=== PATIENT | female | born 1950 | race Two or more races ===

== ENCOUNTER 2025-06-25 08:40 | Outpatient (AMB) | payer OTHER, SELFPAY ==
--- NOTE | 2025-06-25 08:45 | MHC.PC.OV ---
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, cholesterol, depression, gastro Intake Note: patient here for SCREEN REPAIRER CRUSHER visit Territory Service Representative Required: Yes Territory Service Representative Language: Certified Registered Locksmith Name: pt refused/ w-son in law Information Interpreted: non-clinical & clinical Is last menstrual period known: No Post menopausal: No Patient : No Allergies No Known Allergies Allergy (Verified 06/25/25 09:07) Medication List - Last Reconciled 06/25/25 by Bakari Ma CNP atorvastatin 80 mg PO BEDTIME hydrochlorothiazide 12.5 mg PO DAILY lansoprazole mg PO metoprolol succinate ER 25 mg PO DAILY pantoprazole 40 mg PO DAILY sertraline 150 mg PO DAILY Tobacco use date assessed: 06/25/25 Fall risk assessment: 2 + Falls in past year Last assessed Fall Risk: 06/25/25 Dental Screening Dental Screen Date: 06/25/25 Did you have a dental visit in the last 12 months?: Yes Did you have a dental problem in the last 6 months where you did not have access to dental care?: No Was dental information given to patient?: Patient has dentist HPI HPI Comments History of Present Illness Details 75-year-old female, accompanied by her son-in-law, presents to establish care. She admits to taking her medications as prescribed without adverse reactions. She reports controlled anxiety and depressive symptoms. She notes constant dull pain to her left shoulder. She takes Tylenol and lidocaine patch with some relief. PT was not helpful. She was followed by [facility]. Prior PCP? - Dr. 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 Does not vape. Does not drink. Denies recreational drug use - Has been making healthy dietary choices. Active but does not exercise. Difficulty falling and staying asleep, sleeps an average of 6 hours, interrupted, snores sometimes, has sleep study scheduled with [facility] - Last eye exam unknown. Has an appointment scheduled with [facility], [place] - Last dental visit was over 10 years ago; encouraged to schedule an appointment with his dentist for routine dental care - She notes that she receives the PNA vaccine in 2017 - She has never been vaccinated for tetanus; declines Tdap - She has never been vaccinated for shingles; declines vaccination - Has not been vaccinated for the flu this season; declines vaccination - Last pap smear test was more than 7 years ago: normal. Declines pap smear test - Last mammogram was in more than 5 years ago. Mammogram ordered - Last colonoscopy was several years ago: h/o benign polyps. She has endoscopy and colonoscopy scheduled with [facility]. - Last dexa scan was with [facility] a few months ago: Normal. Will request request record for review Specialists - Has an appointment [facility] later this month - Direct Care Supervisor and Edge Drummer at [facility] - Has an appointment with [facility] later this month for h/o stroke - Has an appointment scheduled with [facility] Medicine - Followed by a psychiatrist virtually Interpretation by the patient's son-in-law per patient's preference. [facility], [facility] Medical History (Updated 06/25/25 @ 11:46 by Bakari Ma CNP) Depression Anxiety Frequent headaches Imbalance Incontinence Acid reflux IBS (irritable bowel syndrome) Sciatica Arthritis H/O thyroid disease Heart palpitations Stroke (cerebrum) High cholesterol Sinusitis Surgical History (Updated 06/25/25 @ 09:49 by Kristal Boateng MA) History of shoulder surgery Family History (Updated 06/25/25 @ 09:56 by Kristal Boateng MA) Mother FH: mental illness Cardiovascular disease Thyroid disorder Brother FH: mental illness High cholesterol Father FH: mental illness High blood pressure Diabetes Son Cancer Social History (Updated 06/25/25 @ 08:57 by Kristal Boateng MA) Housing: Apartment Patient Tobacco Use Status: Never used Tobacco e-Cigarette/Vaping Use: Never Used Second Hand Smoke Exposure: No service: No Current occupational status: retired Current occupational exposures/hazards: No Cognitive needs: No Hearing needs: No Vision needs: Yes Questionnaire PHQ-9 Over the last 2 weeks, how often have you been bothered by any of the following problems? 1. Little interest or pleasure in doing things: several days 2. Feeling down, depressed, or hopeless: several days 3. Trouble falling or staying asleep, or sleeping too much: nearly every day 4. Feeling tired or having little energy: nearly every day 5. Poor appetite or overeating: several days 6. Feeling bad about yourself - or that you are a failure or have let yourself or your family down: not at all 7. Trouble concentrating on things, such as reading the newspaper or watching television: not at all 8. Moving or speaking so slowly that other people could have noticed. Or the opposite - being so fidgety or restless that you have been moving around a lot more than usual: several days 9. Thoughts that you would be better off or of hurting yourself in some way: not at all Total score: 10 Depression Screening Interpretation: Positive Depression Screening Follow-up: Existing condition and In treatment Depression Screening Done: Yes 09068 - PHQ-9 Billing: Yes Source: Developed by Drs. Nick Hahn, Suzi Pino, Gio Navarro and colleagues, with an educational faye from [employer]. Thrive Questionnaire Date Thrive assessed: 06/25/25 I am a: Patient What is your living situation today?: I have a steady place to live Within the past 12 months, did the food you bought not last and you didn't have the money to get more?: Never true Within the past 12 months, did you worry whether your food would run out before you got money to buy more?: Never true Do you have trouble paying for medicines?: No Do you have trouble getting transportation to medical appointments?: No Do you have trouble paying your heating and electricity bill?: No Do you have trouble taking care of your child, family member or friend?: No Do you have trouble with day-to-day activities such as bathing, preparing meals, shopping, managing finances, etc.?: Yes Are you currently unemployed and looking for a job?: No Are you interested in more education?: No Please select the resources that you would like help with: None Currently or been in a relationship where the following occur: No concerns reported THRIVE Score: 0 AUDIT C Alcohol Use Questionnaire (AUDIT-C) 1. How often do you have a drink containing alcohol?: Never 3. How often do you have six or more drinks on one occasion?: Never Total Score: 0 Score Reviewed/Action Taken: Yes JESSE-7 AMB Questionnaire JESSE-7 Date JESSE - 7 assessed: 06/25/25 Feeling nervous, anxious, or on edge: 1 = Several days Not being able to stop or control worryin = Several days Worrying too much about different things: 2 = More than half the days Trouble relaxin = More than half the days Being so restless that it is hard to sit still: 3 = Nearly every day Becoming easily annoyed or irritable: 0 = Not at all Feeling afraid as if something awful might happen: 1 = Several days Total JESSE-7 score (0-4 normal; 5-9 mild; 10-14 moderate; 15-21 severe): 10 Source: Developed by Drs. Nick Hahn, Suzi Pino, Gio Navarro and colleagues, with an educational faye from [employer]. JESSE-7 Assessment Billing JESSE-7 Assessment Tool: JESSE-7 Assessment 50360 Review of Systems Const Details: Denies chills, Denies fatigue, Denies fever(s), Denies headache(s) and Denies weakness HEENT Denies change in vision, Denies dizziness, Denies headache(s), Denies hearing loss, Denies nasal congestion, Denies sinus pain, Denies sinus pressure and Denies sore throat Card Denies chest pain, Denies lightheadedness, Denies dyspnea and Denies other (palpitations) Resp Denies cough, Denies dyspnea and Denies wheezing GI Denies abdominal pain, Denies melena, Denies hematochezia, Denies change in bowel habits, Denies dyspepsia and Denies nausea Denies hematuria and Denies dysuria Musc Reports left shoulder pain, Denies abnormal gait, Denies numbness and Denies tingling Skin/Breast Denies rash, Denies unusual bruising and Denies wounds Neuro Denies abnormal gait, Denies dizziness, Denies headache(s), Denies memory loss, Denies numbness, Denies Sensory deficit (Neuro), Denies tingling and Denies weakness Psych Denies anxiety, Denies depression and Denies memory loss Endo Denies cold intolerance, Denies fatigue, Denies heat intolerance, Denies polydipsia and Denies polyuria Erik/Lymph Denies easy bleeding and Denies easy bruising Aller/Immun Denies wheezing Physical exam (Primary Care) Vital Signs: Last Vital Signs Temp 97.9 F 06/25/25 08:58 Pulse 58 06/25/25 08:58 Resp 16 06/25/25 08:58 BP 133/61 06/25/25 08:58 Pulse Ox 98 06/25/25 08:58 Oxygen Delivery Method Room Air 06/25/25 08:58 BMI result Body Mass Index 27.2 Tobacco/Smoking Status: Tobacco use Status Tobacco use date assessed 06/25/25 06/25/25 08:57 Patient Tobacco Use Status Never used Tobacco 06/25/25 08:57 e-Cigarette/Vaping Use Never Used 06/25/25 08:57 PHQ-9: PHQ-9 Score PHQ-9: Total score 10 06/25/25 11:51 Depression Screening Interpretation: Positive Depression Screening Follow-up: Existing condition and In treatment Thrive Assessment: Date of Thrive Assessment Date Thrive assessed 06/25/25 06/25/25 09:57 Currently or been in a relationship where the following occur: No concerns reported Const Other: General: no acute distress, well developed, alert and awake Nutritional Appearance: well nourished Orientation/consciousness: patient oriented x3 HENMT Head: Yes normocephalic and Yes atraumatic Ears: hearing grossly normal bilaterally and TM's normal bilaterally General nose exam: Normal external nose present and Normal nares present Mouth: Normal oral and palatal mucosa present and moist mucous membranes Teeth and gingiva: dentition normal Throat: Yes oropharynx normal Eyes Pupils: Equal, round and reactive pupils present and Pupil accommodation reflex normal EOM: EOMs intact bilaterally Neck Neck: Yes normal visual inspection, Yes no lymphadenopathy and Yes trachea midline Thyroid: Thyroid normal Carotids: no bruits Lymphatic: no lymphadenopathy noted Chest Chest palpation & inspection: normal inspection of the chest Resp Effort & Inspection: normal respiratory effort Auscultation: clear to auscultation bilaterally Cardio Rate: regular rate Rhythm: regular rhythm Heart sounds: S1 normal heart sound present, S2 normal heart sound present, no gallops, no murmurs and no rubs Bruits: no abdominal aortic bruits and no carotid bruits GI Palpation (GI): No Abdominal aortic bruit present, Soft to palpation, nontender, No hepatosplenomegaly present and No Rebound tenderness present Auscultation: normal bowel sounds General: Yes no CVA tenderness Back/Spine/Pelvis Back: no CVA tenderness Cervical Spine: cervical ROM normal and No Cervical spine tenderness Thoracic/Lumbar Spine: thoraco-lumbar ROM normal, No pain with thoraco-lumbar ROM, No thoracic spinal tenderness and No lumbar spinal tenderness Skin General: warm and dry. Normal skin color. Normal skin turgor Lesions: no lesions Rashes: no rashes Trauma: no lacerations or abrasions Wounds: no wounds Nails: normal Neuro General: patient oriented x3, gait normal and CN's II-XI intact bilaterally Cranial nerves: Yes Equal, round and reactive pupils present Cognition (Neuro): normal cognition Gait exam (Neuro): Normal gait present Motor exam (neuro): 5/5 motor strength present throughout Sensory Exam: No Sensory deficit (Neuro) Deep tendon reflexes (DTR's): Right patellar reflex intensity grade: 2+ and Left patellar reflex intensity grade: 2+ Extrem General: Yes normal to inspection, No edema and No calf tenderness, Left shoulder with normal ROM, no overt injury or trauma Psych Appearance: grossly normal Affect: normal affect Attitude: cooperative Thought process: Normal thought process present Coding Level of Care Code New Pt Level 3 (24865) New Pt Prev Care >65yr (86238) Diagnoses Hypertension I10 Anxiety and depression F41.9; F32.A Sleep disturbance G47.9 Chronic left shoulder pain M25.512; G89.29 Laboratory tests ordered as part of a complete physical exam (CPE) Z00.00 Breast cancer screening by mammogram Z12.31 Additional Codes JESSE-7 Assessment Billing - JESSE-7 Assessment Tool: JESSE-7 Assessment 01097 ([id number]) PHQ-9 - 47242 - PHQ-9 Billing: Yes ([id number]) Assessment & Plan Assessment & Plan (1) Hypertension: Code(s): I10 - Essential (primary) hypertension Category: Medical Plan: Blood pressure is 133/61, slightly above goal of less than 130/80. Continue current treatment regimen. Low-sodium diet encouraged. Follow-up in 1 month for hypertension and labs reviewed. Return sooner with symptoms or concerns. Verbalized understanding and agreed with the plan. (2) Anxiety and depression: Code(s): F41.9 - Anxiety disorder, unspecified; F32.A - Depression, unspecified Category: Medical Plan: Reports controlled anxiety and depressive symptoms. PHQ-9 and JESSE-7 scores revealed moderate depression and anxiety. Continue current treatment regimen. Routine exercise encouraged. Follow-up with psychiatrist as planned. Verbalized understanding and agreed with the plan. (3) Sleep disturbance: Code(s): G47.9 - Sleep disorder, unspecified Category: Medical Plan: She reports difficulty falling and staying asleep. She sleeps an average of 6 hours, interrupted. She snores a times and has sleep study scheduled with [facility]. Instructed on sleep hygiene. May take melatonin as needed. Follow-up with [facility] sleep medicine as planned. Verbalized understanding and agreed with the plan. (4) Chronic left shoulder pain: Code(s): M25.512 - Pain in left shoulder; G89.29 - Other chronic pain Category: Medical Plan: She notes constant dull pain to her left shoulder. She takes Tylenol and lidocaine patch with some relief. PT was not helpful. She was followed by [facility] ortho. Normal ROM of the left shoulder. No overt injury or trauma. Continue current treatment regimen. Follow-up with Ortho as planned. Verbalized understanding and agreed with the plan. (5) Laboratory tests ordered as part of a complete physical exam (CPE): Code(s): Z00.00 - Encounter for general adult medical examination without abnormal findings Category: Medical Plan: Fasting labs ordered as part of a complete physical exam. Advised to fast for at least 10 hours before getting labs drawn. May drink water Verbalized understanding and agreed with treatment plan. (6) Breast cancer screening by mammogram: Code(s): Z12.31 - Encounter for screening mammogram for malignant neoplasm of breast Category: Medical Plan: Last mammogram was in more than 5 years ago. Mammogram ordered. Orders: Orders Microalbumin, Random (w Creat) Today Z00.00 - Encounter for general adult medical examination without abnormal findings TSH reflex Free T4 Today Z00.00 - Encounter for general adult medical examination without abnormal findings UA CC w/rflx Micro + Cult Today Z00.00 - Encounter for general adult medical examination without abnormal findings Vitamin D 25-OH Total Today Z00.00 - Encounter for general adult medical examination without abnormal findings MM screening mammo BI Today Z12.31 - Encounter for screening mammogram for malignant neoplasm of breast Complete Blood Count Auto Diff Today Z00.00 - Encounter for general adult medical examination without abnormal findings Comprehensive [place]. Panel Fast Today Z00.00 - Encounter for general adult medical examination without abnormal findings Lipid Panel Today Z00.00 - Encounter for general adult medical examination without abnormal findings
[2025-06-25 08:58] VITALS: BP 133/61; PULSE 58; RESP 16; TEMP 36.6; O2SAT 98; BMI 27.2
== END 2025-06-25 09:53 | disposition home or self-care (01) ==
LOC: HO.HMCFM 08:41
PROVIDERS: PCP Nurse Practitioner Family; Visit Provider Nurse Practitioner Family
DX: Z00.00 Encounter for general adult medical examination without abnormal findings (principal); I10 Essential (primary) hypertension; F41.9 Anxiety disorder, unspecified; F32.A Depression, unspecified; G47.9 Sleep disorder, unspecified; M25.512 Pain in left shoulder; G89.29 Other chronic pain; Z12.31 Encounter for screening mammogram for malignant neoplasm of breast

== ENCOUNTER → 2025-06-25 08:40 | Outpatient (BNVA) | payer OTHER, SELFPAY | PROVIDERS: PCP Nurse Practitioner Family; Visit Provider Nurse Practitioner Family | DX: Z00.00 Encounter for general adult medical examination without abnormal findings (principal); I10 Essential (primary) hypertension; F41.9 Anxiety disorder, unspecified; F32.A Depression, unspecified; M25.512 Pain in left shoulder; G89.29 Other chronic pain | CPT/HCPCS: 96127; 99202; 99387 ==

== ENCOUNTER 2025-07-02 09:44 | Outpatient (REF) | payer OTHER, SELFPAY ==
[2025-07-02 11:21] LABS: MANUAL DIFF FLAG NO
[2025-07-02 11:30] LABS: Hematocrit 34.3 % (37.0-47.0); Hemoglobin 11.8 g/dl (12.0-16.0); Imm Gran Abs Auto 0.01 X10*3/uL (0.00-0.03); Imm Gran Pct Auto 0.2 % (0.0-0.4); Lymphocytes Absolute Auto 2.1 X10*3/uL (1.2-4.9); Mean Corpuscular HGB Conc 34.4 g/dl (31.0-35.0); Mean Corpuscular Hemoglobin 31.6 pg (27.0-33.0); Mean Corpuscular Volume 91.7 fL (80.0-98.0); NRBC Abs Auto 0.000 X10*3/uL (0.0-0.012); NRBC Pct Auto 0.0 /100WBC (0.0-0.2); Platelet Count 229 X10*3/uL (160-400); Red Blood Count 3.74 X10*6/uL (4.20-5.50); White Blood Count 6.1 X10*3/uL (4.8-10.8)
[2025-07-02 11:34] LABS: Appearance Urine Clear; Glucose Urine UA Negative (Negative); PH 5.5 (5.0-9.0); Specific Gravity - Urine 1.020 (1.005-1.025); UMIC TRIGGER UACC YES
[2025-07-02 11:38] LABS: UACC Culture Trigger YES
--- OUTSIDE RECORDS SUMMARY | 2025-07-02 11:58 | XMS_ITS | Patient Health Record ---
Author Organization [facility] Address [address] [place] [address] Care Team Providers Care Electronics Installer Name Role Phone Wayne Ybarra Unavailable Unavailable Reason For Referral No Information Problems Problem Type SNOMED Code ICD Code Onset Dates Problem Status W/U Status Risk Notes Problem Information temporarily unavailable Radiculopat hy, lumbar region (M54.16) Active confirmed Problem Information temporarily unavailable Radiculopat hy, lumbar region (M54.16) Active confirmed Plan Of Treatment No Information Insurance Providers Payer Name Payer Address Payer Phone Subscriber Number Group Number Insured Name Patient Relationship to Insured Coverage Start Date Coverage End Date [facility] [address] [place] [address] [id number] Lauren Gotti Self - patient is the insured [employer] [place] [address] [place] [address] [id number] Lauren Gotti Self - patient is the insured
[2025-07-02 12:11] LABS: Microalbum/Creatinine Ratio Ur 9.5 ug/mg cr (<30)
[2025-07-02 12:18] LABS: Alanine Aminotransferase 21 U/L (0-31); Albumin Level 4.3 g/dL (3.5-5.0); Alkaline Phosphatase 108 U/L (39-117); Anion Gap 12 (12-20); Aspartate Amino Transferase 30 U/L (5-31); Blood Urea Nitrogen 9 mg/dL (9-16); Calcium 9.4 mg/dL (8.4-10.2); Carbon Dioxide 29 mmol/L (22-29); Chloride 105 mmol/L (96-108); Cholesterol 149 mg/dL (<200); Estimated Glomerular Filt Rate > 60; HDL Cholesterol 46 mg/dL (>40); Potassium 4.1 mmol/L (3.3-5.1); Sodium 142 mmol/L (135-145); Total Protein 7.0 g/dL (6.5-8.0); Triglycerides 135 mg/dL (<150)
== END 2025-07-02 09:45 | disposition home or self-care (01) ==
LOC: HO.WFDLDS 09:44
PROVIDERS: Visit Provider Nurse Practitioner Family
DX: Z00.00 Encounter for general adult medical examination without abnormal findings (principal); Z13.29 Encounter for screening for other suspected endocrine disorder; Z13.6 Encounter for screening for cardiovascular disorders; Z13.21 Encounter for screening for nutritional disorder
CPT/HCPCS: 36415; 80053; 80061; 81001; 82043; 82306; 82570; 84443; 85025; 87086

== ENCOUNTER 2025-08-07 09:37 | Outpatient (AMB) | payer OTHER, SELFPAY ==
--- NOTE | 2025-08-07 09:40 | MHC.PC.OV ---
Vital Signs 08/07/25 09:45 08/07/25 10:02 Height 5 ft 1 in Weight 143 lb 4 oz BMI 27.1 BP 135/65 130/70 Blood Pressure Location Rt brachial Rt brachial Position Sitting Sitting Respiration 16 Pulse 58 Pulse Source Pulse Oximeter Temp 97.7 F Temp Source Oral Pulse Oximetry (%) 97 Oxygen Delivery Method Room Air Intake Visit Reasons: 1 mos HTN, labs review, resched Intake Note: patient here for follow up on HTN and labs review Treating Machine Operator Required: Yes Treating Machine Operator Language: Public Health Sanitarian Technician Name: Brittani [id number] Information Interpreted: non-clinical & clinical Accompanied by: Grand Child Is last menstrual period known: No Post menopausal: No Patient : No Allergies No Known Allergies Allergy (Verified 08/07/25 09:54) Medication List - Last Reconciled 08/07/25 by Bakari Ma CNP atorvastatin 80 mg PO BEDTIME hydrochlorothiazide 12.5 mg PO DAILY lansoprazole mg PO metoprolol succinate ER 25 mg PO DAILY pantoprazole 40 mg PO DAILY sertraline 150 mg PO DAILY Tobacco use date assessed: 08/07/25 Fall risk assessment: No Falls in past year Last assessed Fall Risk: 08/07/25 Dental Screening Dental Screen Date: 08/07/25 Did you have a dental visit in the last 12 months?: Yes Did you have a dental problem in the last 6 months where you did not have access to dental care?: No Was dental information given to patient?: Patient has dentist HPI HPI Comments History of Present Illness Details 75-year-old Guamanian-speaking female, accompanied by her granddaughter, presents for hypertension and review of recent lab results. She admits to taking her medications as prescribed without adverse reactions. Reports intermittent right shoulder pain for the past 3months. She denies fall, injury, or trauma. She takes Tylenol as needed with temporary relief. She is followed by [facility]. She notes nonproductive cough daily at bedtime for several months. She denies sick contacts. No fever, chills, bodyaches, fatigue, or weakness. Irritation by a Guamanian-speaking design tech via electronic tablet. [facility] Medical History (Updated 08/07/25 @ 10:15 by Bakari Ma CNP) Depression Anxiety Frequent headaches Imbalance Incontinence Acid reflux IBS (irritable bowel syndrome) Sciatica Arthritis H/O thyroid disease Heart palpitations Stroke (cerebrum) High cholesterol Sinusitis Surgical History (Updated 06/25/25 @ 09:49 by KARRIE Young) History of shoulder surgery Family History (Updated 06/25/25 @ 09:56 by KARRIE Young) Mother FH: mental illness Cardiovascular disease Thyroid disorder Brother FH: mental illness High cholesterol Father FH: mental illness High blood pressure Diabetes Son Cancer Social History (Updated 06/25/25 @ 08:57 by KARRIE Young) Housing: Apartment Patient Tobacco Use Status: Never used Tobacco e-Cigarette/Vaping Use: Never Used Second Hand Smoke Exposure: No service: No Current occupational status: retired Current occupational exposures/hazards: No Cognitive needs: No Hearing needs: No Vision needs: Yes Questionnaire PHQ-9 Over the last 2 weeks, how often have you been bothered by any of the following problems? 1. Little interest or pleasure in doing things: nearly every day 2. Feeling down, depressed, or hopeless: several days 3. Trouble falling or staying asleep, or sleeping too much: several days 4. Feeling tired or having little energy: several days 5. Poor appetite or overeating: not at all 6. Feeling bad about yourself - or that you are a failure or have let yourself or your family down: several days 7. Trouble concentrating on things, such as reading the newspaper or watching television: not at all 8. Moving or speaking so slowly that other people could have noticed. Or the opposite - being so fidgety or restless that you have been moving around a lot more than usual: not at all 9. Thoughts that you would be better off or of hurting yourself in some way: not at all Total score: 7 Depression Screening Interpretation: Positive Depression Screening Follow-up: Existing condition and In treatment Depression Screening Done: Yes Source: Developed by Drs. Nick Hahn, Suzi Pino, Gio Navarro and colleagues, with an educational faye from [employer]. Thrive Questionnaire Date Thrive assessed: 06/22/25 I am a: Patient What is your living situation today?: I have a steady place to live Within the past 12 months, did the food you bought not last and you didn't have the money to get more?: Never true Within the past 12 months, did you worry whether your food would run out before you got money to buy more?: Never true Do you have trouble paying for medicines?: No Do you have trouble getting transportation to medical appointments?: No Do you have trouble paying your heating and electricity bill?: No Do you have trouble taking care of your child, family member or friend?: No Do you have trouble with day-to-day activities such as bathing, preparing meals, shopping, managing finances, etc.?: Yes Are you currently unemployed and looking for a job?: No Are you interested in more education?: No Please select the resources that you would like help with: None Currently or been in a relationship where the following occur: No concerns reported THRIVE Score: 0 JESSE-7 AMB Questionnaire JESSE-7 Date JESSE - 7 assessed: 06/25/25 Source: Developed by Drs. Nick Hahn, Suzi Pino, Gio Navarro and colleagues, with an educational faye from [employer]. Review of Systems Const Details: Const Denies chills, Denies fatigue, Denies fever(s), Denies headache(s) and Denies weakness ENT Denies dizziness and Denies headache(s) Card Denies chest pain, Denies lightheadedness, Denies dyspnea and Denies other (Palpitations) Resp Reports cough, Denies dyspnea, Denies wheezing and Denies other ( shortness of breath) GI Denies abdominal pain, Denies melena, Denies hematochezia, Denies change in bowel habits, Denies dyspepsia and Denies nausea Denies hematuria and Denies dysuria Musc Denies abnormal gait, Denies myalgias, Denies arthralgias, Denies numbness and Denies tingling Skin/Breast Denies rash, Denies unusual bruising and Denies wounds Neuro Denies abnormal gait, Denies dizziness, Denies headache(s), Denies memory loss, Denies numbness, Denies Sensory deficit (Neuro), Denies tingling and Denies weakness Psych Denies anxiety, Denies depression, Denies memory loss Endo Denies cold intolerance, Denies fatigue, Denies heat intolerance, Denies polydipsia and Denies polyuria Aller/Immun Denies wheezing Physical exam (Primary Care) Vital Signs: Last Vital Signs Temp 97.7 F 08/07/25 09:45 Pulse 58 08/07/25 09:45 Resp 16 08/07/25 09:45 BP 130/70 08/07/25 10:02 Pulse Ox 97 08/07/25 09:45 Oxygen Delivery Method Room Air 08/07/25 09:45 BMI result Body Mass Index 27.1 Tobacco/Smoking Status: Tobacco use Status Tobacco use date assessed 08/07/25 08/07/25 09:49 Patient Tobacco Use Status Never used Tobacco 08/07/25 09:49 e-Cigarette/Vaping Use Never Used 08/07/25 09:49 PHQ-9: PHQ-9 Score PHQ-9: Total score 7 08/07/25 10:02 Depression Screening Interpretation: Positive Depression Screening Follow-up: Existing condition and In treatment Thrive Assessment: Date of Thrive Assessment Date Thrive assessed 06/22/25 08/07/25 09:49 Currently or been in a relationship where the following occur: No concerns reported Const Other: General: no acute distress and well developed Nutritional Appearance: well nourished Orientation/consciousness: patient oriented x3 HENMT Head: Yes normocephalic and Yes atraumatic Eyes General: appearance normal, both eyes and all related structures Pupils: Equal, round and reactive pupils present EOM: EOMs intact bilaterally Resp Effort & Inspection: normal respiratory effort Auscultation: clear to auscultation bilaterally Cardio Rate: regular rate Rhythm: regular rhythm Heart sounds: S1 normal heart sound present, S2 normal heart sound present, no gallops, no murmurs and no rubs GI Palpation (GI): No Abdominal aortic bruit present, Soft to palpation, nontender, No hepatosplenomegaly present and No Rebound tenderness present Auscultation: normal bowel sounds General: Yes no CVA tenderness Back/Spine/Pelvis Back: no CVA tenderness Cervical Spine: cervical ROM normal and No Cervical spine tenderness Thoracic/Lumbar Spine: thoraco-lumbar ROM normal, No pain with thoraco-lumbar ROM, No thoracic spinal tenderness and No lumbar spinal tenderness Extrem General: Yes normal to inspection, No edema and No calf tenderness Skin General: warm and dry. Normal skin color. Normal skin turgor Neuro General: patient oriented x3, gait normal and no focal neuro deficit Cranial nerves: Yes Equal, round and reactive pupils present Cognition (Neuro): normal cognition Gait exam (Neuro): Normal gait present Sensory Exam: No Sensory deficit (Neuro) Psych Appearance: grossly normal Affect: normal affect Attitude: cooperative Thought process: Normal thought process present Coding Level of Care Code Est Pt Level 4 (63314) Diagnoses Hypertension I10 Normocytic anemia D64.9 Cough R05.9 Right shoulder pain M25.511 Assessment & Plan Assessment & Plan (1) Hypertension: Code(s): I10 - Essential (primary) hypertension Category: Medical Plan: Resting blood pressure 130/70, slightly above goal of less than 130/80. Continue current treatment regimen. Low-sodium diet encouraged. Follow-up in 3 months for hypertension, anxiety, depression. Return sooner with symptoms or concerns. Verbalized understanding and agreed with the plan. (2) Normocytic anemia: Code(s): D64.9 - Anemia, unspecified Category: Medical Plan: Recent labs reviewed with the patient. RBC and H&H were slightly low, 3.74 and 11.8/34.3 respectively. MCV is normal. Likely anemia of chronic disease. However, will check iron profile, vitamin B12, and folate levels. Will review results and make changes as needed. Follow-up in 3 months for hypertension, anxiety, and depression. Return sooner with symptoms or concerns. Verbalized understanding and agreed with the plan. (3) Cough: Code(s): R05.9 - Cough, unspecified Category: Medical Plan: She notes nonproductive cough daily at bedtime for several months. She denies sick contacts. No fever, chills, bodyaches, fatigue, or weakness. Likely allergies. No signs of bacterial or viral infection. Cetirizine 10 mg daily at bedtime ordered; advised to get prescribed. Follow-up with worsening or new symptoms. Verbalized understanding and agreed with the plan. (4) Right shoulder pain: Code(s): M25.511 - Pain in right shoulder Category: Medical Plan: Reports intermittent right shoulder pain for the past 3months. She denies fall, injury, or trauma. She takes Tylenol as needed with temporary relief. She is followed by [facility]. Normal ROM of the right shoulder. No overt injury or trauma. Take Tylenol ibuprofen as needed for pain or discomfort. Warm or cold compresses encouraged. Follow-up with ortho as planned. Verbalized understanding and agreed with the treatment plan. Orders: Orders IRON PROFILE Today D64.9 - Anemia, unspecified Vitamin B12 and Folate Today D64.9 - Anemia, unspecified Medications: New cetirizine 10 mg PO DAILY 30 tabs 3RF 30 days
[2025-08-07 09:45] VITALS: BP 135/65; PULSE 58; RESP 16; TEMP 36.5; O2SAT 97; BMI 27.1
[2025-08-07 10:02] VITALS: BP 130/70
--- OUTSIDE RECORDS SUMMARY | 2025-08-07 10:51 | XMS_ITS | Patient Health Record ---
Author Organization [facility] Address [address] [place] [address] Care Team Providers Care Sales Forecast Analyst Name Role Phone Wayne Ybarra Unavailable Unavailable [...] Insured Coverage Start Date Coverage End Date [employer] [address] [place] [address] [id number] Lauren Gotti Self - patient is the insured [employer] of [place] [address] [place] [address] [id number] Lauren Gotti Self - patient is the insured
--- OUTSIDE RECORDS SUMMARY | 2025-08-07 10:52 | XMS_ITS | Data Portability ---
Author Organization [place] - [facility], [facility] Address [address] [place] [address] Assessment Encounter Date Assessment Date Assessment LastModified by Organization Details LastModified Time 11/29/2024 11/29/2024 74-year-old female presents for evaluation of several issues. In regard to occasional otalgia otologic exam is unremarkable. She does have significant tenderness to TMJ particularly on the right side. Otalgia is likely referred from the jaw. TMJ precautions were discussed in detail. She feels as though her dentures fit well but she could visit her dentist to ensure there is no pressure spots which could be adjusted. In regard to tinnitus audiometric testing was obtained today. Results show high-frequency sensorineural hearing loss bilaterally which is symmetrical. She does not need amplification but this is certainly the cause for tinnitus. Masking techniques reviewed. In relation to swallowing difficulty will order a swallow study and follow-up for review when available. For rhinitis she may continue her Flonase as this has been beneficial in relieving symptoms. All questions were answered. [email or web address] Not available 11/29/2024 14:36:31 Plan of Treatment Reminders Order Date Submit Date Provider Last Modified By Organization Details Last Modified Time Details Appointments None record ed. Lab None record ed. Referral None record ed. Procedures None record ed. Surgeries None record ed. Imaging None record ed. Medication Orders None record ed. Patient TargetsNo targets recorded. Patient InstructionsNo instructions recorded. Reason for Referral None Reported. Problems Name Problem SNOMED Code Status Onset Date Resolution Date Notes Provider Name and Address Organization Details Recorded Time Dysphagia 64895645 Active 2024 APARNA VALLEJO PA-C [address], [place], [address], [place] - [facility] 5 14:36:36 Bilateral earache 154691741 Active 2024 APARNA VALLEJO PA-C [address] [address], [place], [address], [facility] - [facility] 5 14:36:46 Pain of temporomand ibular joint 36865977 Active 2024 APARNA VALLEJO PA-C [address] [address], [place], [address], [facility] - [facility] 5 14:36:50 Bilateral tinnitus 5259274375112 Active 2024 APARNA VALLEJO PA-C [address] [place] [address],[address] [address], [place], [address], [facility] - [facility] 5 14:36:55 Sensorineur al hearing loss of bilateral ears 875099446 Active 2024 APARNA VALLEJO PA-C [address] [address], [place], [address], [facility] - [facility] 5 14:36:58 Problem Notes None recorded. Medical Equipment None Reported. Medications Name Sig Start Date Stop Date Status Note LastModified by Organization Details LastModified Time cyclobenzapri ne 10 mg tablet TAKE ONE TABLET BY MOUTH THREE TIMES A DAY NEEDED active Not Available Not Available No t Available atorvastatin 40 mg tablet TAKE ONE TABLET BY MOUTH EVERY DAY active Not Available Not Available No t Available acetaminophen 325 mg tablet TAKE THREE TABLETS BY MOUTH EVERY 8 HOURS NEEDED FOR PAIN active Not Available Not Available No t Available azithromycin 250 mg tablet TAKE 2 TABLETS ON FIRST DAY , THEN 1 TABLET DAILY FOR 4 DAYS active Not Available Not Available No t Available prednisone 20 mg tablet TAKE 2 TABLETS BY MOUTH ONCE DAILY FOR 3 DAYS THEN 1 ONCE DAILY FOR 3 DAYS THEN 1/2 (ONE-HALF) ONCE DAILY FOR 4 DAYS active Not Available Not Available N ot Available sertraline 100 mg tablet TAKE 1.5 TABLETS BY MOUTH ONCE DAILY active Not Available Not Available No t Available aspirin 81 mg tablet,delaye d release TAKE ONE TABLET BY MOUTH EVERY DAY active Not Available Not Available No t Available acetaminophen 500 mg tablet TAKE TWO TABLETS BY MOUTH THREE TIMES A DAY NEEDED active Not Available Not Available No t Available temazepam 30 mg capsule TAKE 1 CAPSULE BY MOUTH EVERY NIGHT AT BEDTIME active Not Available Not Available No t Available levothyroxine 50 mcg tablet TAKE ONE TABLET BY MOUTH EVERY DAY active Not Available Not Available No t Available cephalexin 500 mg capsule TAKE ONE CAPSULE BY MOUTH EVERY 12 HOURS FOR 5 DAYS active Not Available Not Available No t Available pantoprazole 40 mg tablet,delaye d release TAKE ONE TABLET BY MOUTH EVERY DAY active Not Available Not Available No t Available erythromycin 5 mg/gram (0.5 %) eye ointment APPLY A SMALL AMOUNT ON EYELID FOUR TIMES A DAY X 1 WEEK THEN STOP active Not Available Not Available No t Available lansoprazole 30 mg capsule,delay ed release TAKE ONE CAPSULE BY MOUTH TWICE A DAY FOR 2 WEEKS. IF SYMPTOMS ARE BETTER THEN REDUCE TO TAKE ONE CAPSULE BY MOUTH EVERY DAY active Not Available Not Available No t Available omeprazole 20 mg capsule,delay ed release TAKE ONE CAPSULE BY MOUTH EVERY DAY active Not Available Not Available No t Available gabapentin 100 mg capsule TAKE ONE CAPSULE BY MOUTH TWICE A DAY active Not Available Not Available No t Available metoprolol succinate ER 25 mg tablet,extend ed release 24 hr TAKE ONE TABLET BY MOUTH EVERY DAY active Not Available Not Available No t Available moxifloxacin 0.5 % eye drops INSTILL 1 DROP INTO OPERATIVE EYE 3 TIMES DAILY STARTING 1 DAY PRE-OP. CONTINUE FOR 7 DAYS AFTER SURGERY active Not Available Not Available No t Available hydrochloroth iazide 12.5 mg tablet TAKE ONE TABLET BY MOUTH EVERY DAY active Not Available Not Available No t Available Prolensa 0.07 % eye drops INSTILL 1 DROP IN THE OPERATIVE EYE EVERY MORNING FOR 21 DAYS. START 1 DAY PRE-OP active Not Available Not Available N ot Available Vitals Date Recorded Body height Body mass index (BMI) Body weight Provider Name and Address Organization Details Last Updated DateTime 11/29/2024 157.48 cm 26 kg/m2 09911.12 g Brenda Hoff [place] - [facility] 11/29/2024 13:30:42 Social History None recorded. Functional Status None recorded. Mental Status None recorded. Family History Nothing Reported. Medical History No medical history recorded. Gynecological HistoryNo gynecological history recorded. Obstetrics History GPAL:G 0 P 0 0 0 0 Past Encounters Encounter ID Performer Location Encounter Start Date Encounter Closed Date Diagnosis/Indication Diagnosis SNOMED-CT Code Diagnosis ICD10 Code Diagnosis IMO Codes Diagnosis Note [id number] APARNA VALLEJO PA-C [facility] [address] [address] 11/29/2024 13:08:12 11/29/2024 14:21:01 Dysphagia 58682524 R13.10 Bilateral earache 035238 003 H92.03 Pain of temporomandibular joint 70393533 M26.629 Bilateral tinnitus 40957 45732 102 H93.13 Sensorineu ral hearing loss of bilateral ears 726409745 H90.3 Health Concerns Section Related Observation LastModified by Organization Detai ls LastModified Time None Recorded Concern Status LastModified by Organization Details LastModified Time None Recorded Advance Directives Directive None Recorded Payers Insurance Date Sequence Insurance Name Policy Number Policy Barnes Covered Member ID Barnes Member ID Guarantor Name 11/23/2024 1 [place] [employer] Lauren Dominguez [id number] Lauren Dominguez 11/23/2024 2 [place] [id number] Laurenjill Dominguez [id number] Lauren Mariees Angelica 03/08/2025 1 [facility] - DOS ON OR AFTER 2023 - DUAL ELIGIBLE - [place]/AD VANTAGE - HMO) Lauren Dominguez [id number] Lauren Dominguez 11/29/2024 1 [place] [employer] Lauren Dominguez [id number] Lauren Mariees Alvelo 11/23/2024 1 [facility] ([facility]) Lauren Dominguez [id number] Lauren Dominguez 11/23/2024 1 [facility] - DOS ON OR AFTER 2023 - [place] VANTAGE - PPO) Lauren Dominguez [id number] Lauren Dominguez 11/23/2024 1 [place] [employer] Lauren R Alicja Alvelo [id number] Lauren Dominguez 11/23/2024 1 [facility] - DOS ON OR AFTER 2023 - ASSISTED OPTIONS AND ONE CARE (MEDICARE REPLACEMENT/AD VANTAGE - PPO) Lauren Dominguez [id number] Lauren Dominguez Notes Date Note Type Note Provider Name and Address Organization Details Recorded Time 11/29/2024 text/html ROS as noted in the HPI 74-year-old female presents for evaluation of several issues. Primarily she has intermittent otalgia bilaterally. Reports it feels as though it is behind and in front of her ear. She does not have history of bruxism but does have significant arthritis. Has dentures but feels as though they fit well. History of smoking but quit 20 years ago. She also has bilateral tinnitus but does not notice hearing loss. She has chronic rhinitis for which she uses Flonase with good effect. Occasionally has swallowing difficulty without pain. APARNA VALLEJO PA-C [address] [place] [address], [phone], [facility] - [facility] 11/29/2024 14:37:52 OBGyn Episode No OBEpisode recorded.
== END 2025-08-07 10:19 | disposition home or self-care (01) ==
LOC: HO.HMCFM 09:38
PROVIDERS: PCP Nurse Practitioner Family; Visit Provider Nurse Practitioner Family
DX: I10 Essential (primary) hypertension (principal); D64.9 Anemia, unspecified; R05.9 Cough, unspecified; M25.511 Pain in right shoulder

== ENCOUNTER 2025-08-07 09:37 | Outpatient (REF) | payer OTHER, SELFPAY ==
[2025-08-07 12:46] LABS: Iron 83 mcg/dL (30-160); Percent Iron Saturation 30 % (15-50); Total Iron Binding Capacity 276 mcg/dL (228-428); Unsaturated Iron Binding 193 ug/dL
[2025-08-07 13:56] LABS: Folate 12.0 ng/mL (> or = 4.0); Vitamin B12 201 pg/mL (200-900)
== END 2025-08-07 09:38 | disposition home or self-care (01) ==
LOC: HO.WFDLDS 09:37
PROVIDERS: PCP Nurse Practitioner Family; Visit Provider Nurse Practitioner Family
DX: Z00.00 Encounter for general adult medical examination without abnormal findings (principal); I10 Essential (primary) hypertension; D64.9 Anemia, unspecified; R05.9 Cough, unspecified; M25.511 Pain in right shoulder; Z79.899 Other long term (current) drug therapy
CPT/HCPCS: 36415; 82607; 82746; 83540; 99212

== ENCOUNTER 2025-09-11 10:28 | Outpatient (AMB) | payer OTHER, SELFPAY ==
--- NOTE | 2025-09-11 10:35 | MHC.PC.OV ---
Vital Signs 09/11/25 10:40 Height 5 ft 1 in Weight 141 lb 2 oz BMI 26.7 BP 134/65 Blood Pressure Location Lt brachial Position Sitting Respiration 16 Pulse 61 Pulse Source Pulse Oximeter Temp 98.0 F Temp Source Oral Pulse Oximetry (%) 99 Oxygen Delivery Method Room Air Intake Visit Reasons: pain to right breast Intake Note: patient here c/o right breast pain Service Attendant Cafeteria Required: Yes Service Attendant Cafeteria Language: Stenotype Machine Operator Name: maría Bush Is last menstrual period known: No Post menopausal: No Patient : No Allergies No Known Allergies Allergy (Verified 09/11/25 10:48) Medication List - Last Reconciled 09/11/25 by Bakari Ma CNP atorvastatin 80 mg PO BEDTIME cetirizine 10 mg PO DAILY 30 days hydrochlorothiazide 12.5 mg PO DAILY lansoprazole mg PO metoprolol succinate ER 25 mg PO DAILY 30 days pantoprazole 40 mg PO DAILY sertraline 150 mg PO DAILY Tobacco use date assessed: 09/11/25 Fall risk assessment: No Falls in past year Last assessed Fall Risk: 09/11/25 Dental Screening Dental Screen Date: 09/11/25 Did you have a dental visit in the last 12 months?: Yes Did you have a dental problem in the last 6 months where you did not have access to dental care?: No Was dental information given to patient?: Patient has dentist HPI HPI Comments History of Present Illness Details 75-year-old Monegasque-speaking female presents with complaints of pain to her right lower lateral breast about a week ago, after she touched the area with her hand. Subsequently, she experienced persistent discomfort for 3-4 days which completely resolved. She denies pain at this time. Last mammogram was 5 years ago. Interpretation by a professional freelance interpreter/translator via voice call. [facility] Medical History (Updated 09/11/25 @ 11:05 by Bakari Ma CNP) Depression Anxiety Frequent headaches Imbalance Incontinence Acid reflux IBS (irritable bowel syndrome) Sciatica Arthritis H/O thyroid disease Heart palpitations Stroke (cerebrum) High cholesterol Sinusitis Surgical History (Updated 06/25/25 @ 09:49 by KARRIE Young) History of shoulder surgery Family History (Updated 06/25/25 @ 09:56 by KARRIE Young) Mother FH: mental illness Cardiovascular disease Thyroid disorder Brother FH: mental illness High cholesterol Father FH: mental illness High blood pressure Diabetes Son Cancer Social History (Updated 06/25/25 @ 08:57 by KARRIE Young) Housing: Apartment Patient Tobacco Use Status: Never used Tobacco e-Cigarette/Vaping Use: Never Used Second Hand Smoke Exposure: No Patient : No service: No Current occupational status: retired Current occupational exposures/hazards: No Cognitive needs: No Hearing needs: No Vision needs: Yes Questionnaire Thrive Questionnaire Date Thrive assessed: 06/22/25 I am a: Patient What is your living situation today?: I have a steady place to live Within the past 12 months, did the food you bought not last and you didn't have the money to get more?: Never true Within the past 12 months, did you worry whether your food would run out before you got money to buy more?: Never true Do you have trouble paying for medicines?: No Do you have trouble getting transportation to medical appointments?: No Do you have trouble paying your heating and electricity bill?: No Do you have trouble taking care of your child, family member or friend?: No Do you have trouble with day-to-day activities such as bathing, preparing meals, shopping, managing finances, etc.?: Yes Are you currently unemployed and looking for a job?: No Are you interested in more education?: No Please select the resources that you would like help with: None Currently or been in a relationship where the following occur: No concerns reported THRIVE Score: 0 JESSE-7 AMB Questionnaire JESSE-7 Date JESSE - 7 assessed: 06/25/25 Source: Developed by Drs. Nick Hahn, Suzi Pino, Gio Navarro and colleagues, with an educational faye from [employer]. Review of Systems Const Details: Const Denies chills, Denies fatigue, Denies fever(s), Denies headache(s) and Denies weakness ENT Denies dizziness and Denies headache(s) Card Denies chest pain, Denies lightheadedness, Denies dyspnea and Denies other (Palpitations) Resp Denies cough, Denies dyspnea, Denies wheezing and Denies other ( shortness of breath) GI Denies abdominal pain, Denies melena, Denies hematochezia, Denies change in bowel habits, Denies dyspepsia and Denies nausea Denies hematuria and Denies dysuria Musc Denies abnormal gait, Denies myalgias, Denies arthralgias, Denies numbness and Denies tingling Skin/Breast Denies rash, Denies unusual bruising and Denies wounds Neuro Denies abnormal gait, Denies dizziness, Denies headache(s), Denies memory loss, Denies numbness, Denies Sensory deficit (Neuro), Denies tingling and Denies weakness Psych Denies anxiety, Denies depression, Denies memory loss Endo Denies cold intolerance, Denies fatigue, Denies heat intolerance, Denies polydipsia and Denies polyuria Aller/Immun Denies wheezing Physical exam (Primary Care) Vital Signs: Last Vital Signs Temp 98.0 F 09/11/25 10:40 Pulse 61 09/11/25 10:40 Resp 16 09/11/25 10:40 BP 134/65 09/11/25 10:40 Pulse Ox 99 09/11/25 10:40 Oxygen Delivery Method Room Air 09/11/25 10:40 BMI result Body Mass Index 26.7 Tobacco/Smoking Status: Tobacco use Status Tobacco use date assessed 09/11/25 09/11/25 10:41 Patient Tobacco Use Status Never used Tobacco 09/11/25 10:37 e-Cigarette/Vaping Use Never Used 09/11/25 10:37 Thrive Assessment: Date of Thrive Assessment Date Thrive assessed 06/22/25 09/11/25 10:37 Currently or been in a relationship where the following occur: No concerns reported Const Other: General: no acute distress and well developed Nutritional Appearance: well nourished Orientation/consciousness: patient oriented x3 [facility] Head: Yes normocephalic and Yes atraumatic Eyes General: appearance normal, both eyes and all related structures Pupils: Equal, round and reactive pupils present EOM: EOMs intact bilaterally Resp Effort & Inspection: normal respiratory effort Auscultation: clear to auscultation bilaterally Cardio Rate: regular rate Rhythm: regular rhythm Heart sounds: S1 normal heart sound present, S2 normal heart sound present, no gallops, no murmurs and no rubs GI Palpation (GI): No Abdominal aortic bruit present, Soft to palpation, nontender, No hepatosplenomegaly present and No Rebound tenderness present Auscultation: normal bowel sounds General: Yes no CVA tenderness Back/Spine/Pelvis Back: no CVA tenderness Cervical Spine: cervical ROM normal and No Cervical spine tenderness Thoracic/Lumbar Spine: thoraco-lumbar ROM normal, No pain with thoraco-lumbar ROM, No thoracic spinal tenderness and No lumbar spinal tenderness Extrem General: Yes normal to inspection, No edema and No calf tenderness Skin General: warm and dry. Normal skin color. Normal skin turgor Neuro General: patient oriented x3, gait normal and no focal neuro deficit Cranial nerves: Yes Equal, round and reactive pupils present Cognition (Neuro): normal cognition Gait exam (Neuro): Normal gait present Sensory Exam: No Sensory deficit (Neuro) Psych Appearance: grossly normal Affect: normal affect Attitude: cooperative Thought process: Normal thought process present Coding Level of Care Code Est Pt Level 3 (53768) Diagnoses Breast pain, right N64.4 Assessment & Plan Assessment & Plan (1) Breast pain, right: Code(s): N64.4 - Mastodynia Category: Medical Plan: Patient reports pain to her right lower lateral breast about a week ago, after she touched the area with her hand. Subsequently, she experienced persistent discomfort for 3-4 days which completely resolved. She denies pain at this time. Declines breast exam at this time. Last mammogram was 5 years ago. Mammogram was ordered in June for patients to bring to a facility of her choice, but she did not. Mammogram ordered for [facility] Radiology today. Follow-up as planned. Return sooner with symptoms or concerns. Verbalized understanding and agreed with the plan. Orders: Orders MM screening mammo BI Today Z12.31 - Encounter for screening mammogram for malignant neoplasm of breast
[2025-09-11 10:40] VITALS: BP 134/65; PULSE 61; RESP 16; TEMP 36.7; O2SAT 99; BMI 26.7
--- OUTSIDE RECORDS SUMMARY | 2025-09-11 13:06 | XMS_ITS | Data Portability ---
Author Organization [place] - [facility], Allergy Address [address] [place] [address] Assessment Encounter Date Assessment Date Assessment LastModified [...] and Address Organization Details Recorded Time Dysphagia 75127915 Active 2024 APARNA VALLEJO PA-C [address], [place], [address], [place] [facility] [place] 5 14:36:36 Bilateral earache 587266083 Active 2024 APARNA VALLEJO PA-C [address] [address], [place], [address], [facility] - [facility] [place] 5 14:36:46 Pain of temporomand ibular joint 92000681 Active 2024 APARNA VALLEJO PA-C [address] [address], [place], [address], [facility] - [facility] [place] 5 14:36:50 Bilateral tinnitus 9816822351417 Active 2024 APARNA VALLEJO PA-C [address] [place] [address],[address] [address], [place], [address], [facility] - [facility] 5 14:36:55 Sensorineur al hearing loss of bilateral ears 548360037 Active 2024 APARNA VALLEJO PA-C [address] [address], [place], [address], [facility] - [facility] [place] 5 14:36:58 Problem Notes None recorded. Medical [...] Updated DateTime 11/29/2024 157.48 cm 26 kg/m2 96887.12 g Brenda Hoff [place] - [facility] 11/29/2024 13:30:42 Social History None recorded. Functional Status None recorded. Mental Status None recorded. Family History Nothing Reported. Medical History No medical history recorded. Gynecological HistoryNo gynecological history recorded. Obstetrics History GPAL:G 0 P 0 0 0 0 Past Encounters Encounter ID Performer Location Encounter Start Date Encounter Closed Date Diagnosis/Indication Diagnosis SNOMED-CT Code Diagnosis ICD10 Code Diagnosis IMO Codes Diagnosis Note [id number] APARNA VALLEJO PA-C [facility] [address] [address] 11/29/2024 13:08:12 11/29/2024 14:21:01 Dysphagia 37965231 R13.10 Bilateral earache 058909 003 H92.03 Pain of temporomandibular joint 64130478 M26.629 Bilateral tinnitus 36220 94165 102 H93.13 Sensorineu ral hearing loss of bilateral ears 980849014 H90.3 Health Concerns Section Related Observation LastModified by Organization Detai ls LastModified Time None Recorded Concern Status LastModified by Organization Details LastModified Time None Recorded Advance Directives Directive None Recorded Payers Insurance Date Sequence Insurance Name Policy Number Policy Barnes Covered Member ID Barnes Member ID Guarantor Name 11/23/2024 1 [place] [employer] Lauren Dominguez [id number] Lauren Dominguez 11/23/2024 2 [place] [facility] Laurenjill Dominguez [id number] Lauren Mariees Angelica 03/08/2025 1 [facility] - DOS ON OR AFTER 2023 - DUAL ELIGIBLE [place]/AD VANTAGE - HMO) Lauren Dominguez [id number] Lauren Dominguez 11/29/2024 1 [place] [employer] Lauren Dominguez [id number] Lauren Mariees Alvelo 11/23/2024 1 [facility] - [facility] HEALTH PLAN ([facility] HMO) Lauren Dominguez [id number] Lauren Dominguez 11/23/2024 1 [facility] CARE ALLI[facility] - DOS ON OR AFTER 2023 - [place]/AD VANTAGE - PPO) Lauren Dominguez [id number] Lauren Dominguez 11/23/2024 1 [place] [employer] Lauren R Alicja Alvelo [id number] Lauren Dominguez 11/23/2024 1 [facility] - DOS ON OR AFTER 2023 - SKILLED NURSING OPTIONS AND ONE CARE (MEDICARE REPLACEMENT/AD VANTAGE - PPO) Lauren Dominguez [id number] Lauren Dominguez Notes Date Note Type Note [...] swallowing difficulty without pain. APARNA VALLEJO PA-C [address] [place] [address], [phone], [facility] - [facility] 11/29/2024 14:37:52 OBGyn Episode No OBEpisode recorded.
== END 2025-09-11 12:22 | disposition home or self-care (01) ==
LOC: HO.HMCFM 10:29
PROVIDERS: PCP Nurse Practitioner Family; Visit Provider Nurse Practitioner Family
DX: N64.4 Mastodynia (principal)

== ENCOUNTER → 2025-09-11 10:28 | Outpatient (BNVA) | payer OTHER, SELFPAY | PROVIDERS: PCP Nurse Practitioner Family; Visit Provider Nurse Practitioner Family | DX: N64.4 Mastodynia (principal) | CPT/HCPCS: 99212 ==

== ENCOUNTER 2025-09-25 11:00 | Outpatient (AMB) | payer OTHER, SELFPAY ==
--- NOTE | 2025-09-25 11:13 | A.OFFPC_ITS ---
Vital Signs 09/25/25 11:19 Height 5 ft 1 in Weight 143 lb 2 oz BMI 27.0 BP 154/67 H Blood Pressure Location Lt brachial Position Sitting Respiration 16 Pulse 62 Pulse Source Pulse Oximeter Temp 97.7 F Temp Source Oral Pulse Oximetry (%) 97 Oxygen Delivery Method Room Air Intake Visit Reasons: pain in right breast mammogram Intake Note: patient here for pain in right breast/ Mammogram Storage Garage Manager Required: Yes Storage Garage Manager Language: Financial Institution Manager Name: shadi [id number] Information Interpreted: non-clinical & clinical Is last menstrual period known: No Post menopausal: No Patient : No Allergies No Known Allergies Allergy (Verified 09/25/25 11:29) Medication List - Last Reconciled 09/25/25 by Bakari Ma CNP atorvastatin 80 mg PO BEDTIME cetirizine 10 mg PO DAILY 30 days hydrochlorothiazide 12.5 mg PO DAILY lansoprazole mg PO metoprolol succinate ER 25 mg PO DAILY 30 days pantoprazole 40 mg PO DAILY rabeprazole mg PO sertraline 150 mg PO DAILY Tobacco use date assessed: 09/25/25 Fall risk assessment: No Falls in past year Last assessed Fall Risk: 09/25/25 Dental Screening Dental Screen Date: 09/25/25 Did you have a dental visit in the last 12 months?: No Did you have a dental problem in the last 6 months where you did not have access to dental care?: No Was dental information given to patient?: No HPI HPI Comments History of Present Illness Details 75-year-old Setswana-speaking female pres ents with requests for a mammogram referral. She notes that she was informed by her son-in-law that a diagnostic mammogram is required. Patient denies breast pain or any acute symptoms at this time. I spoke with the son-in-law over the phone who states that radiology department at [facility] requested the patient's PCP orders a diagnostic mammogram as patient has symptoms. Patient's son-in-law informed that the patient did not have symptoms at her last or current visit and therefore does not required a diagnostic mammogram. Interpretation by a professional director speech and hearing via video call. [facility] Medical History (Updated 09/11/25 @ 11:05 by Bakari Ma CNP) Depression Anxiety Frequent headaches Imbalance Incontinence Acid reflux IBS (irritable bowel syndrome) Sciatica Arthritis H/O thyroid disease Heart palpitations Stroke (cerebrum) High cholesterol Sinusitis Surgical History (Updated 06/25/25 @ 09:49 by KARRIE Young) History of shoulder surgery Family History (Updated 06/25/25 @ 09:56 by KARRIE Young) Mother FH: mental illness Cardiovascular disease Thyroid disorder Brother FH: mental illness High cholesterol Father FH: mental illness High blood pressure Diabetes Son Cancer Social History (Updated 06/25/25 @ 08:57 by KARRIE Young) Housing: Apartment Patient Tobacco Use Status: Never used Tobacco e-Cigarette/Vaping Use: Never Used Second Hand Smoke Exposure: No Patient : No service: No Current occupational status: retired Current occupational exposures/hazards: No Cognitive needs: No Hearing needs: No Vision needs: Yes Questionnaire Thrive Questionnaire Date Thrive assessed: 06/22/25 I am a: Patient What is your living situation today?: I have a steady place to live Within the past 12 months, did the food you bought not last and you didn't have the money to get more?: Never true Within the past 12 months, did you worry whether your food would run out before you got money to buy more?: Never true Do you have trouble paying for medicines?: No Do you have trouble getting transportation to medical appointments?: No Do you have trouble paying your heating and electricity bill?: No Do you have trouble taking care of your child, family member or friend?: No Do you have trouble with day-to-day activities such as bathing, preparing meals, shopping, managing finances, etc.?: Yes Are you currently unemployed and looking for a job?: No Are you interested in more education?: No Please select the resources that you would like help with: None Currently or been in a relationship where the following occur: No concerns reported THRIVE Score: 0 JESSE-7 AMB Questionnaire JESSE-7 Date JESSE - 7 assessed: 06/25/25 Source: Developed by Drs. Nick Hahn, Suzi Pino, Gio Navarro and colleagues, with an educational faye from [employer]. Review of Systems Const Details: Const Denies chills, Denies fatigue, Denies fever(s), Denies headache(s) and Denies weakness ENT Denies dizziness and Denies headache(s) Card Denies chest pain, Denies lightheadedness, Denies dyspnea and Denies other (Palpitations) Resp Denies cough, Denies dyspnea, Denies wheezing and Denies other ( shortness of breath) GI Denies abdominal pain, Denies melena, Denies hematochezia, Denies change in bowel habits, Denies dyspepsia and Denies nausea Denies hematuria and Denies dysuria Musc Denies abnormal gait, Denies myalgias, Denies arthralgias, Denies numbness and Denies tingling Skin/Breast Denies rash, Denies unusual bruising and Denies wounds Neuro Denies abnormal gait, Denies dizziness, Denies headache(s), Denies memory loss, Denies numbness, Denies Sensory deficit (Neuro), Denies tingling and Denies weakness Psych Denies anxiety, Denies depression, Denies memory loss Endo Denies cold intolerance, Denies fatigue, Denies heat intolerance, Denies polydipsia and Denies polyuria Aller/Immun Denies wheezing Physical exam (Primary Care) Vital Signs: Last Vital Signs Temp 97.7 F 09/25/25 11:19 Pulse 62 09/25/25 11:19 Resp 16 09/25/25 11:19 BP 154/67 H 09/25/25 11:19 Pulse Ox 97 09/25/25 11:19 Oxygen Delivery Method Room Air 09/25/25 11:19 BMI result Body Mass Index 27.0 Tobacco/Smoking Status: Tobacco use Status Tobacco use date assessed 09/25/25 09/25/25 11:22 Patient Tobacco Use Status Never used Tobacco 09/25/25 11:15 e-Cigarette/Vaping Use Never Used 09/25/25 11:15 Thrive Assessment: Date of Thrive Assessment Date Thrive assessed 06/22/25 09/25/25 11:15 Currently or been in a relationship where the following occur: No concerns reported Const Other: General: no acute distress and well developed Nutritional Appearance: well nourished Orientation/consciousness: patient oriented x3 [facility] Head: Yes normocephalic and Yes atraumatic Eyes General: appearance normal, both eyes and all related structures Pupils: Equal, round and reactive pupils present EOM: EOMs intact bilaterally Resp Effort & Inspection: normal respiratory effort Auscultation: clear to auscultation bilaterally Cardio Rate: regular rate Rhythm: regular rhythm Heart sounds: S1 normal heart sound present, S2 normal heart sound present, no gallops, no murmurs and no rubs Extrem General: Yes normal to inspection, No edema and No calf tenderness Skin General: warm and dry. Normal skin color. Normal skin turgor Neuro General: patient oriented x3, gait normal and no focal neuro deficit Cranial nerves: Yes Equal, round and reactive pupils present Cognition (Neuro): normal cognition Gait exam (Neuro): Normal gait present Sensory Exam: No Sensory deficit (Neuro) Psych Appearance: grossly normal Affect: normal affect Attitude: cooperative Thought process: Normal thought process present Coding Level of Care Code Est Pt Level 3 (82295) Diagnoses Breast cancer screening by mammogram Z12. Assessment & Plan Assessment & Plan (1) Breast cancer screening by mammogram: Code(s): Z12.31 - Encounter for screening mammogram for malignant neoplasm of breast Category: Medical Plan: No acute symptoms at this time. Patient to follow-up with [facility] radiology department to schedule an appointment for screening mammogram. Follow-up with PCP with symptoms or concerns. Verbalized understanding and agreed with the plan.
[2025-09-25 11:19] VITALS: BP 154/67; PULSE 62; RESP 16; TEMP 36.5; O2SAT 97; BMI 27.0
== END 2025-09-25 12:46 | disposition home or self-care (01) ==
LOC: HO.HMCFM 11:01
PROVIDERS: PCP Nurse Practitioner Family; Visit Provider Nurse Practitioner Family
DX: Z12.31 Encounter for screening mammogram for malignant neoplasm of breast (principal)

== ENCOUNTER → 2025-09-25 11:00 | Outpatient (BNVA) | payer OTHER, SELFPAY | PROVIDERS: PCP Nurse Practitioner Family; Visit Provider Nurse Practitioner Family | DX: Z71.2 Person consulting for explanation of examination or test findings (principal); N64.4 Mastodynia | CPT/HCPCS: 99212 ==